=== PATIENT | male | born 1950 | race Caucasian/White ===

== ENCOUNTER 2016-08-18 07:10 | Day surgery (SDC) | payer OTHER ==
[~2016-08-18] VITALS: Ht 182.9 cm; Wt 91.0 kg
[2016-08-18] VITALS (650 sets, daily range): BP systolic 112–141; BP diastolic 65–87; PULSE 58–73; TEMP 97.8–98.3; O2SAT 84–98
[~2016-08-18 07:10] MED LIST: ALEVE 220MG220 MG PO; AMARYL 2MG T2 MG/TAB PO; AMARYL4 MG PO; ASPIRIN 81M81 MG/TA2 PO; ASPIRIN E.C. 8181 MG PO; BRILINTA90 MG PO; CARAFATE 1GM1 G PO; CENTRUM1 TAB PO; CIPRO 500MG TA500 MG PO; FLOMAX 0.40.4 MG/CAP PO; GLUCOPHAGE1000 MG PO; LIPITOR 10MG10 MG PO; LIPITOR20 MG PO; NITROSTAT0.4 MG/TAB SL; PLAVIX 75MG TAB75 MG PO; PRILOSEC 20MG20 MG PO; PRINIVIL10 MG PO; RT ADVAIR HFA 1112 G IH; SINGULAIR 110 MG/TAB PO; SPIRIVA RE2.5 MCG/Ac IH; TOPROL XL 25MG25 MG PO; TYLENOL 500MG500 MG PO; TYLENOL PM EXTR1 TA1 PO; VITAMIN C500 MG PO
[2016-08-18 08:00] LABS: HEMATOCRIT 43.4 % (42.0-52.0); HEMOGLOBIN 14.9 g/dl (13.5-18.0); MEAN CELL VOLUME 95 fl (80.0-100.0); MEAN CORPUSCULAR HEMOGLOBIN 33 pg (27.0-31.0); MEAN CORPUSCULAR HGB CONC 34 g/dl (33.0-37.0); MEAN PLATELET VOLUME 10.9 fl (7.4-10.4); PLATELET COUNT 177 K/mm3 (130-400); RED BLOOD COUNT 4.56 M/mm3 (4.20-5.60); REDCELL DISTRIBUTION WIDTH-CV 12.1 % (11.5-14.5)
[2016-08-18 08:12] LABS: CALCIUM 9.3 mg/dL (8.4-10.2); CREATININE, serum 0.94 mg/dL (0.66-1.25); POTASSIUM 4.2 mmol/L (3.4-5.0)
[2016-08-18 08:13] LABS: INR 1.1 (0.8-3.0); PROTHROMBIN TIME 12.1 SECONDS (9.7-12.8)
[2016-08-18] MEDS ORDERED: RT ADVAIR HFA 1112 G IH (11:56)
[2016-08-18] MEDS ORDERED: COMBIRESP IH (12:33)
[2016-08-19] VITALS (447 sets, daily range): BP systolic 119–151; BP diastolic 77–93; PULSE 79–92; TEMP 98; O2SAT 87–96
[2016-08-19 05:31] LABS: HEMATOCRIT 41.8 % (42.0-52.0); HEMOGLOBIN 14.6 g/dl (13.5-18.0); MEAN CELL VOLUME 93 fl (80.0-100.0); MEAN CORPUSCULAR HEMOGLOBIN 32 pg (27.0-31.0); MEAN CORPUSCULAR HGB CONC 35 g/dl (33.0-37.0); MEAN PLATELET VOLUME 10.7 fl (7.4-10.4); PLATELET COUNT 145 K/mm3 (130-400); RED BLOOD COUNT 4.51 M/mm3 (4.20-5.60); WHITE BLOOD COUNT 7.5 K/mm3 (4.8-10.8)
[2016-08-19 05:48] LABS: CALCIUM 8.8 mg/dL (8.4-10.2); CREATININE, serum 0.89 mg/dL (0.66-1.25); POTASSIUM 4.2 mmol/L (3.4-5.0)
[2016-08-19] MEDS ORDERED: ASPIRIN E.C. 8181 MG PO (09:34)
[2016-08-19] MEDS ORDERED: ASPIRIN E.C. 8181 MG (09:34)
[2016-08-19] MEDS ORDERED: CEPHALEXIN500 M1 PO (09:35)
[2016-08-19] MEDS ORDERED: PRILOTC (09:45)
== END 2016-08-19 10:30 | disposition home or self-care (01) ==
LOC: COL.CAR 07:10 → ICU 11:08 → IMCU 17:44 → COL.CAR 08-19 10:30
PROVIDERS: Internal Medicine Cardiovascular Disease
DX: I25.10 Atherosclerotic heart disease of native coronary artery without angina pectoris (principal); I10 Essential (primary) hypertension; I71.4 Abdominal aortic aneurysm, without rupture; E78.5 Hyperlipidemia, unspecified; E11.9 Type 2 diabetes mellitus without complications; J44.9 Chronic obstructive pulmonary disease, unspecified; M19.90 Unspecified osteoarthritis, unspecified site; Z79.84 Long term (current) use of oral hypoglycemic drugs; Z87.891 Personal history of nicotine dependence; Z86.79 Personal history of other diseases of the circulatory system; Z82.49 Family history of ischemic heart disease and other diseases of the circulatory system; Z80.8 Family history of malignant neoplasm of other organs or systems
CPT/HCPCS: OP; C1725; C1760; C1769; C1874; C1887; C9600; J0153; J1644; J2250; J3010; Q9967

== ENCOUNTER 2017-03-04 19:51 | Observation (INO) | payer OTHER ==
[~2017-03-04] VITALS: Ht 182.9 cm; Wt 101.8 kg
[~2017-03-04 19:51] MED LIST changes: +ASPIRIN E.C. 8181 MG; +CEPHALEXIN500 M1 PO; +COMBIRESP IH; +PRILOTC
[2017-03-04 21:16] VITALS: BP 148/87; PULSE 83; TEMP 97.9
[2017-03-05] VITALS (12 sets, daily range): BP systolic 96–139; BP diastolic 48–79; PULSE 72–91; TEMP 97.7–98.5
[2017-03-05] MEDS ORDERED: CIPRO 500MG TA500 MG PO ×2 (03:41→03:42)
[2017-03-05] MEDS ORDERED: PYRIDIUM 100MG100 MG PO (03:43)
[2017-03-05] MEDS ORDERED: NEURONTIN300 MG/CAP PO (04:15)
[2017-03-05 06:42] LABS: BASO % 0.2 % (0.0-2.0); EOS # 0.1 (0.0-0.7); EOS % 0.9 % (0-4.0); GRAN # 5.9 (1.4-6.5); GRAN % 56.4 % (42.2-75.2); LYMPH % 28.5 % (20.0-51.0); MEAN CELL VOLUME 96 fl (80.0-100.0); MEAN CORPUSCULAR HEMOGLOBIN 33 pg (27.0-31.0); MEAN CORPUSCULAR HGB CONC 34 g/dl (33.0-37.0); MEAN PLATELET VOLUME 11.1 fl (7.4-10.4); MONO # 1.4 (0.1-0.6); MONO % 13.6 % (1.7-9.3); PLATELET COUNT 146 K/mm3 (130-400); RED BLOOD COUNT 3.67 M/mm3 (4.20-5.60); WHITE BLOOD COUNT 10.4 K/mm3 (4.8-10.8)
[2017-03-05 06:45] LABS: HEMATOCRIT 35.3 % (42.0-52.0)
[2017-03-05 06:55] LABS: CALCIUM 8.5 mg/dL (8.4-10.2); CREATININE, serum 1.04 mg/dL (0.66-1.25)
[2017-03-06 00:49] VITALS: BP 161/95; PULSE 86; TEMP 98.3
[2017-03-06 04:00] VITALS: BP 133/66; PULSE 71; TEMP 97.8
[2017-03-06 09:22] VITALS: BP 142/75; PULSE 82; TEMP 97.9
== END 2017-03-06 14:30 | disposition home or self-care (01) ==
LOC: SURG 19:51
PROVIDERS: Urology
DX: R31.0 Gross hematuria (principal); R33.9 Retention of urine, unspecified; Z95.5 Presence of coronary angioplasty implant and graft; I25.10 Atherosclerotic heart disease of native coronary artery without angina pectoris; I10 Essential (primary) hypertension; Z95.0 Presence of cardiac pacemaker; J44.9 Chronic obstructive pulmonary disease, unspecified; Z87.891 Personal history of nicotine dependence; E11.9 Type 2 diabetes mellitus without complications; Z88.5 Allergy status to narcotic agent; Z88.1 Allergy status to other antibiotic agents; M19.90 Unspecified osteoarthritis, unspecified site; G43.909 Migraine, unspecified, not intractable, without status migrainosus; E78.5 Hyperlipidemia, unspecified
CPT/HCPCS: G0378; J1100; J1815; J2405; J2704; J3010; J7030

== ENCOUNTER 2018-07-16 14:04 | Inpatient (IN) | payer MEDICARE ==
[~2018-07-16] VITALS: Ht 182.9 cm; Wt 93.1 kg
[~2018-07-16 14:04] MED LIST changes: +BEVESPI AEROS10.7 GM IH; +NEURONTIN300 MG/CAP PO; +PYRIDIUM 100MG100 MG PO
[2018-07-16 14:22] LABS: BASO % 0.4 % (0.0-2.0); EOS # 0.2 (0.0-0.7); EOS % 2.9 % (0-4.0); GRAN # 3.7 (1.4-6.5); GRAN % 50.1 % (42.2-75.2); HEMATOCRIT 44.9 % (42.0-52.0); HEMOGLOBIN 15.3 g/dl (13.5-18.0); LYMPH # 2.4 (1.2-3.4); LYMPH % 32.2 % (20.0-51.0); MEAN CELL VOLUME 92 fl (80.0-100.0); MEAN CORPUSCULAR HEMOGLOBIN 31 pg (27.0-31.0); MEAN CORPUSCULAR HGB CONC 34 g/dl (33.0-37.0); MEAN PLATELET VOLUME 11.4 fl (7.4-10.4); MONO % 13.9 % (1.7-9.3); PLATELET COUNT 154 K/mm3 (130-400); RED BLOOD COUNT 4.88 M/mm3 (4.20-5.60); REDCELL DISTRIBUTION WIDTH-CV 12.4 % (11.5-14.5)
[2018-07-16 14:36] LABS: ALANINE AMINOTRANSFERASE 45 U/L (21-72); ALBUMIN 4.4 gm/dL (3.5-5.0); ALKALINE PHOSPHATASE 125 U/L (50-136); ANION GAP 9 mmol/L (7-16); AST,SGOT 39 U/L (15-37); BILIRUBIN,TOTAL 0.4 mg/dL (0.0-1.0); BLOOD UREA NITROGEN 16 mg/dL (9-20); CALCIUM 9.1 mg/dL (8.4-10.2); CARBON DIOXIDE 24 mmol/L (22-30); CHLORIDE 106 mmol/L (98-107); CREATININE, serum 0.99 (0.66-1.25); GLUCOSE 153 mg/dL (74-106); POTASSIUM 4.3 mmol/L (3.4-5.0); SODIUM 138 mmol/L (137-145); TOTAL PROTEIN 7.8 gm/dL (6.4-8.2)
[2018-07-16 14:37] LABS: C-REACTIVE PROTEIN < 0.5 mg/dL (0.0-0.9)
[2018-07-16 14:41] LABS: ERYTHROCYTE SEDIMENTATION RATE 2 mm/hr (0-30)
[2018-07-16 14:48] VITALS: BP 128/74; PULSE 70
[2018-07-16 17:02] LABS: COLLECTION METHOD CLEAN CATCH
[2018-07-16 17:33] LABS: MUCOUS Present /lpf; PH 5 (5-8); SQUAMOUS EPITHELIAL None Seen /hpf; URINE APPEARANCE Clear; URINE BACTERIA None Seen /hpf; URINE BILIRUBIN Negative (NEGATIVE); URINE BLOOD Negative (NEGATIVE); URINE COLOR Yellow; URINE GLUCOSE 1+ (NEGATIVE); URINE KETONE Negative (NEGATIVE); URINE LEUKOCYTE ESTERASE Negative (NEGATIVE); URINE NITRATE Negative (NEGATIVE); URINE PROTEIN(semi-quant) Negative (NEGATIVE); URINE RBC 0-2 /hpf; URINE UROBILINOGEN Negative (NEGATIVE)
[2018-07-16 19:25] VITALS: BP 146/89; PULSE 64; TEMP 97.5
--- NOTE | 2018-07-16 19:30 | NUR ---
PT ADMITTED TO ROOM. PT HAD PROVIDED THIS NURSE A COPY OF HIS MED LIST, THIS NURSE UPDATED MED REQ AND NOTIFIED CHRISTIN ANNEL OF CHANGES SO PT WAS ABLE TO GET ALL HIS MEDS THIS NOC.
[2018-07-16] MEDS ORDERED: TYLENOL PM EXTR1 TA1 PO (20:26)
[2018-07-16] MEDS ORDERED: PROTONIX20 MG PO (20:28)
--- NOTE | 2018-07-16 21:15 | NUR ---
PT RECIEVED SCHEULED LOVENOX SHOT. PT STATED THAT THE MEDICINE IN THE SHOT MADE IT HURT SO BAD THAT IT WAS THE WORST FEELING SHOT HES EVER HAD. STATED THAT HE DOESNT WANT ANY MORE LIKE THAT.
--- NOTE | 2018-07-16 23:00 | NUR ---
PT STATED THAT HE WAS THINKING THAT HE GETS HIS HEADACHES WHEN HIS BLOOD PRESSURE GETS HIGH AND WHEN HES HELPING WITH HIS GRANDCHILDREN. HE STATED THAT HIS SAID SHE NOTICES HIM HOLDING HIS HEAD AT THAT TIME WELL.
[2018-07-16 23:39] VITALS: BP 120/66; PULSE 69; TEMP 98
--- NOTE | 2018-07-17 00:30 | NUR ---
PT WAS MADE NPO AT MIDNIGHT. THIS NURSE SAW IN H&P NOTE ABOUT POSSIBLY DOING A DAMARIS SCAN LATER IN THE MORNING. DISSCUSSED THIS WITH PT, HE ALSO STATED THAT HE WAS TOLD BY LEWIS HE WAS GOING TO DO A HEART CATH DUE TO EXTENSIVE HEART HX.
[2018-07-17 03:24] VITALS: BP 153/97; PULSE 66; TEMP 97.1
--- NOTE | 2018-07-17 05:07 | NUR ---
PT AHD UNEVENTFUL NOC. NOC C/O PAIN. APPEARED TO HAVE SLEPT WELL.
--- NOTE | 2018-07-17 07:37 | NUR ---
Received report and met patient. He is awake, alert and plesant. States he really misses his morning coffee. He does have concern about his blood surgars as if he gets down to 80 he becomes symptomactic. He is scheduled to have another glucose test at 0800, prior was 232. He also states that he does not like the lovenox he received at HS as it was painful but will take if he has to. It was encouraged that he visit with the providers on rounds to see if there was an alternative for him. He currently denies pain. Call light and personal items are within reach.
[2018-07-17 07:47] VITALS: BP 149/88; PULSE 94; TEMP 98
--- NOTE | 2018-07-17 09:58 | NUR ---
Initial visit; Patient thanked Drum Worker for looking in on him and offering God's blessings. Drum Worker will follow up.
[2018-07-17 11:53] VITALS: BP 136/74; PULSE 85; TEMP 97.6
--- NOTE | 2018-07-17 13:54 | NUR ---
RAFY met with the patient and patient's , Camille, to discuss discharge plan. The patient lives in [place] with his and daughter, Nae. He reports independence with ADLs and does not use any DME. The patient's primary care provider is Khai Cordova PA-C and he receives his medications at [facility]. He reports no difficulties obtaining his meds. The patient does not have advanced directives, but he was interested in completing a DPOA-HC. The patient designated his and daughter (Nae). RAFY and the patient's GROUNDWATER CONSULTANT witnessed the patient's signature. The patient was provided with the original and some copies. A copy was placed in the patient's chart. The patient plans to return home with his family upon discharge. No additional needs at this time.
[2018-07-17 15:51] VITALS: BP 124/77; PULSE 88; TEMP 98.1
--- NOTE | 2018-07-17 17:08 | NUR ---
DR CAMACHO JUST NOTIFIED ME THAT EEG WAS NORMAL. DR SAUCEDO AND DEEDEE VALDEZ NOTIFIED ABOUT EEG RESULTS.
--- NOTE | 2018-07-17 18:25 | NUR ---
Patient sitting up in bed eating supper and watching TV. Family is at bedside. Personal items and call light is within reach. No other needs identified.
[2018-07-17 19:35] VITALS: BP 108/57; PULSE 90; TEMP 98
--- NOTE | 2018-07-17 20:30 | NUR ---
PT WBG 353 AT THIS TIME. PT CURRENLY EATING HS SNACK WILL RECHECK AT A LATER HOUR. PT WILL BE NPO AT MIDNIGHT. HOLDING INSULIN UNTIL RECHECK IF WBG ELEVATED AT LATER HOUR WITH ADMINISTER INSULIN
[2018-07-17 23:13] VITALS: BP 116/59; PULSE 77; TEMP 97.7
[2018-07-18] VITALS (433 sets, daily range): BP systolic 102–136; BP diastolic 58–83; PULSE 66–89; TEMP 97–97.9; O2SAT 84–100
--- NOTE | 2018-07-18 05:31 | NUR ---
PT HAD UNEVENTFUL NOC. NO C/O PAIN. APPEARED TO HAVE SLEPT WELL. WAS NPO AT MIDNIGHT FOR UPCOMING HEART CATH. NO ISSUES OR CONSERNS VOICED.
[2018-07-18 07:17] LABS: BASO % 0.1 % (0.0-2.0); EOS # 0.1 (0.0-0.7); EOS % 0.7 % (0-4.0); GRAN # 6.4 (1.4-6.5); GRAN % 65.9 % (42.2-75.2); HEMATOCRIT 42.9 % (42.0-52.0); HEMOGLOBIN 14.8 g/dl (13.5-18.0); LYMPH % 20.1 % (20.0-51.0); MEAN CELL VOLUME 93 fl (80.0-100.0); MEAN CORPUSCULAR HEMOGLOBIN 32 pg (27.0-31.0); MEAN CORPUSCULAR HGB CONC 35 g/dl (33.0-37.0); MEAN PLATELET VOLUME 11.6 fl (7.4-10.4); MONO # 1.2 (0.1-0.6); MONO % 12.7 % (1.7-9.3); PLATELET COUNT 143 K/mm3 (130-400); RED BLOOD COUNT 4.64 M/mm3 (4.20-5.60); REDCELL DISTRIBUTION WIDTH-CV 12.4 % (11.5-14.5)
[2018-07-18 07:22] LABS: INR 1.1 (0.8-3.0)
[2018-07-18 07:25] LABS: PARTIAL THROMBOPLASTIN TIME 30.3 SECONDS (26.0-37.0)
[2018-07-18 07:26] LABS: CALCIUM 9.2 mg/dL (8.4-10.2); CREATININE, serum 0.99 (0.66-1.25)
--- NOTE | 2018-07-18 10:15 | NUR ---
Patient sitting in chair upon entry. Patient awaiting cardiac cath procedure. Patient denies chest pain, SOB, dizziness, headache. Per patient "i thought one was coming on earlier but it went away". No complaints of N/V. Lung sounds clear throughout, heart sounds RRR, bowel sounds present X4, pulses strong bilaterally. Patient states right foot neuropathy due to DM. No other complaints other than "being hungry, thirsty and wanting coffee".
--- NOTE | 2018-07-18 10:50 | NUR ---
Dr. Nava in to see patient. Patient c/o of dizziness. Dr. Nava requesting blood sugar and blood pressure check. Patient has been NPO since last night. Patient denied dizziness or headache 30 min ago when in for assessment.
--- NOTE | 2018-07-18 11:15 | NUR ---
Patient down for Cardiac Cath procedure at this time.
--- NOTE | 2018-07-18 11:40 | NUR ---
SEE MERGE FOR MEDICATION ADMINISTRATION TIMES,SEE MERGE FOR RASS ASSESSMENT DURING AND POST PROCEDURE.
--- NOTE | 2018-07-18 13:13 | NUR ---
Report received from Jordy in record label intern and pt brought by bed to ICU 1. Pt placed on monitor and groin site assessed. Safeguard in place per record label intern staff. Pt denies any pain or concerns. Did go over bedrest and activity restrictions. Pt states he understands, "Shweta had 4 of these now." Call light within reach. Dr Zapata in to see pt. No new orders at this time. Will continue to follow.
--- NOTE | 2018-07-18 13:20 | NUR ---
Called Dr Castillo regarding temporal artery biopsy. Dr Castillo states biopsy will be in AM at 0730. Will page anesthesia to follow up with timing as well.
--- NOTE | 2018-07-18 16:55 | NUR ---
Pt resting at this time. Remains on bedrest. Dressing C/D/I. Denies any pain. Will continue to follow.
--- NOTE | 2018-07-18 18:57 | NUR ---
Safeguard removed and new dressing applied. Pt sat up in bed and tolerated well. No drainage noted. Pt voided per urinal. Continues to deny any pain. Is not dangling at edge of bed eating dinner. Will continue to follow.
--- NOTE | 2018-07-18 19:18 | NUR ---
Report given to Teressa VALDEZ and care transfered.
--- NOTE | 2018-07-18 19:30 | NUR ---
Groin site assessed; scant drainage. Area soft and non-tender to touch. Assessment complete. Patient denies any pain at this time. Call light within reach. Will continue to monitor.
[2018-07-19] VITALS (549 sets, daily range): BP systolic 95–130; BP diastolic 56–81; PULSE 73–91; TEMP 97.4–97.8; O2SAT 77–99
--- NOTE | 2018-07-19 04:00 | NUR ---
Groin site assessed; scant drainage noted. Has not changed since 1999 assessment. Bandage change; no other concerns at this time.
[2018-07-19 05:54] LABS: BASO % 0.1 % (0.0-2.0); GRAN # 6.2 (1.4-6.5); HEMATOCRIT 43.2 % (42.0-52.0); HEMOGLOBIN 14.6 g/dl (13.5-18.0); LYMPH # 1.3 (1.2-3.4); LYMPH % 15.4 % (20.0-51.0); MEAN CELL VOLUME 94 fl (80.0-100.0); MEAN CORPUSCULAR HEMOGLOBIN 32 pg (27.0-31.0); MEAN CORPUSCULAR HGB CONC 34 g/dl (33.0-37.0); MONO # 0.8 (0.1-0.6); MONO % 9.9 % (1.7-9.3); PLATELET COUNT 140 K/mm3 (130-400); RED BLOOD COUNT 4.62 M/mm3 (4.20-5.60); REDCELL DISTRIBUTION WIDTH-CV 12.3 % (11.5-14.5)
[2018-07-19 06:11] LABS: CALCIUM 9.1 mg/dL (8.4-10.2); CREATININE, serum 0.99 (0.66-1.25); POTASSIUM 4.4 mmol/L (3.4-5.0)
--- NOTE | 2018-07-19 06:58 | NUR ---
Kenny, first assistant manager here to transport patient off unit for artery biopsy.
--- NOTE | 2018-07-19 07:00 | NUR ---
Beside report given to JOSÉ MIGUEL Corcoran. Patient care transfered.
--- NOTE | 2018-07-19 07:10 | NUR ---
Report received from Teressa VALDEZ and care resumed. Pt currently in OR getting biopsy.
--- NOTE | 2018-07-19 08:50 | NUR ---
Pt returned from OR and placed back on monitor. Denies any pain or concerns. Assessment complete. Approximately 1 inch incision noted to right temporal area, glue intact. Will continue to follow.
--- NOTE | 2018-07-19 09:10 | NUR ---
Dr Hunter in to see pt at this time.
[2018-07-19] MEDS ORDERED: LIPITOR 80MG80 MG PO (09:19)
[2018-07-19] MEDS ORDERED: PREDNISONE20 MG PO (09:21)
--- NOTE | 2018-07-19 09:22 | NUR ---
SW attended clinical rounds. Patient will likley discharge home today.
--- NOTE | 2018-07-19 11:38 | NUR ---
Dr Lyons in to see pt. Plan will be to review/update meds then ok for discharge per Dr Hunter.
--- NOTE | 2018-07-19 14:21 | NUR ---
Dr Hunter called to follow up with pt. Will plan for discharge.
--- NOTE | 2018-07-19 14:44 | NUR ---
Pt given discharge instructions. INT dc'd at pt dressed. Pt walked out per request to front entrance for discharge.
== END 2018-07-19 14:40 | disposition home or self-care (01) | DRG 41 ==
LOC: COL.ER 14:04 → MEDICAL 16:30 → ICU 16:30 → MEDICAL 16:30 → ICU 07-18 12:39
PROVIDERS: Emergency Medicine; Physician Assistant; ADMIT Hospitalist
PROC: 027034Z Dilation of Coronary Artery, One Artery with Drug-eluting Intraluminal Device, Percutaneous Approach (ICD-10-PCS; principal; 2018-07-18)
PROC: B2111ZZ Fluoroscopy of Multiple Coronary Arteries using Low Osmolar Contrast (ICD-10-PCS; 2018-07-18)
PROC: 03BS0ZX Excision of Right Temporal Artery, Open Approach, Diagnostic (ICD-10-PCS; 2018-07-19)
DX: G44.53 Primary thunderclap headache (principal); T82.855A Stenosis of coronary artery stent, initial encounter; I25.10 Atherosclerotic heart disease of native coronary artery without angina pectoris; I10 Essential (primary) hypertension; E11.43 Type 2 diabetes mellitus with diabetic autonomic (poly)neuropathy; E78.5 Hyperlipidemia, unspecified; Z95.5 Presence of coronary angioplasty implant and graft; J44.9 Chronic obstructive pulmonary disease, unspecified; N40.0 Benign prostatic hyperplasia without lower urinary tract symptoms; Z87.891 Personal history of nicotine dependence; M27.40 Unspecified cyst of jaw
CPT/HCPCS: OP; 99222-AI; 99239; C1725; C1760; C1769; C1874; C1887; C1894; C9600; J0583; J1644; J1650; J1815; J2250; J2704; J3010; J7512; Q9967

== ENCOUNTER 2018-12-11 22:58 | Inpatient (IN) | payer MEDICARE ==
[~2018-12-11] VITALS: Ht 182.9 cm; Wt 91.5 kg
[~2018-12-11 22:58] MED LIST changes: +LIPITOR 80MG80 MG PO; +PREDNISONE20 MG PO; +PROTONIX20 MG PO
--- NOTE | 2018-12-11 23:02 | NUR ---
Patient arrived accompanied by [facility]. Patient has chest pain of 1/10 at this time, ANNEL Peter notified of arrival, will continue to monitor.
[2018-12-11 23:09] VITALS: BP 142/85; PULSE 61; TEMP 97.7
[2018-12-11 23:40] LABS: MAGNESIUM 1.6 mg/dL (1.6-2.3)
[2018-12-11 23:53] LABS: TROPONIN-I < 0.012 ng/mL (0.000-0.035)
[2018-12-12] VITALS (812 sets, daily range): BP systolic 108–149; BP diastolic 65–86; PULSE 53–83; TEMP 97.8–98.4; O2SAT 79–97
[2018-12-12] MEDS ORDERED: SINGULAIR 110 MG/TAB PO (00:11)
[2018-12-12] MEDS ORDERED: TRELEGY ELLIPT1 EACH IH (00:12)
[2018-12-12] MEDS ORDERED: [UNRECOGNIZED DRUG - OTHER] INH (00:13)
[2018-12-12 06:01] LABS: BASO % 0.5 % (0.0-2.0); EOS # 0.3 (0.0-0.7); EOS % 4.4 % (0-4.0); GRAN # 3.1 (1.4-6.5); GRAN % 52.2 % (42.2-75.2); HEMOGLOBIN 13.2 g/dl (13.5-18.0); LYMPH # 1.7 (1.2-3.4); MEAN CELL VOLUME 95 fl (80.0-100.0); MEAN CORPUSCULAR HEMOGLOBIN 32 pg (27.0-31.0); MEAN CORPUSCULAR HGB CONC 34 g/dl (33.0-37.0); MEAN PLATELET VOLUME 11.6 fl (7.4-10.4); MONO # 0.9 (0.1-0.6); MONO % 14.6 % (1.7-9.3); PLATELET COUNT 121 K/mm3 (130-400); RED BLOOD COUNT 4.11 M/mm3 (4.20-5.60); REDCELL DISTRIBUTION WIDTH-CV 12.4 % (11.5-14.5)
[2018-12-12 06:17] LABS: ALANINE AMINOTRANSFERASE 29 U/L (21-72); ALBUMIN 3.4 gm/dL (3.5-5.0); ALKALINE PHOSPHATASE 85 U/L (50-136); ANION GAP 7 mmol/L (7-16); AST,SGOT 28 U/L (15-37); BILIRUBIN,TOTAL 0.3 mg/dL (0.0-1.0); BLOOD UREA NITROGEN 9 mg/dL (9-20); CALCIUM 8.1 mg/dL (8.4-10.2); CARBON DIOXIDE 26 mmol/L (22-30); CHLORIDE 107 mmol/L (98-107); CHOLESTEROL 112 mg/dL (120-200); CREATININE, serum 0.89 (0.66-1.25); GLUCOSE 124 mg/dL (74-106); HDL CHOLESTEROL 28 mg/dL; LDL CHOLESTEROL 49 mg/dL; MAGNESIUM 2.1 mg/dL (1.6-2.3); POTASSIUM 3.7 mmol/L (3.4-5.0); SODIUM 140 mmol/L (137-145); TRIGLYCERIDE 174 mg/dL
[2018-12-12 06:37] LABS: TROPONIN-I < 0.012 ng/mL (0.000-0.035)
--- NOTE | 2018-12-12 07:00 | NUR ---
RECEIVED REPORT FROM JOSÉ MIGUEL JACINTO. PT SITTING UP IN BED WATCHING TV. NITRO GTT INFUSING AT 10MCG/MIN. CALL LIGHT WITHIN REACH. VSS.
--- NOTE | 2018-12-12 07:45 | NUR ---
US TECH AT BEDSIDE FOR ECHO. PT COOPERATIVE WITH CARE.
--- NOTE | 2018-12-12 08:35 | NUR ---
O2 DECREASED TO 3L VIA NC. PT DENIES ANY NEEDS AT THIS TIME. CALL LIGHT WITHIN REACH. PT VERBALIZED UNDERSTANDING THAT HE IS NPO AT THIS TIME.
--- NOTE | 2018-12-12 09:37 | NUR ---
DR EPPS AT BEDSIDE FOR ASSESSMENT. AWAITING FOR CARDIOLOGY TO INTERROGATE LOOP RECORDER AND ASSESSMENT.
--- NOTE | 2018-12-12 10:16 | NUR ---
SUZETTE mosher attended clinical rounds with the team. Stone Breaker was consulted. After rounds SUZETTE mosher met with the patient to discuss a discharge plan. The patient lives in [place] with his , Camille and their daughter and three grandchildren. The patient has a cane in case he needs it and is independent with ADLs. The patient's PCP is PETE Chanel and patient receives medications from [facility] with no difficulties. The patient has advanced directives in the EMR. The patient plans to return home upon discharge with Camille providing transportation. There are no additional needs at this time.
--- NOTE | 2018-12-12 11:01 | NUR ---
[facility] RNs AT BEDSIDE PREPPING PT. CONSENT SIGNED. NITRO GTT INFUSING AT 10MCG/MIN INFUSING UPON TRANSFER TO [facility].
--- NOTE | 2018-12-12 11:27 | NUR ---
SEE MERGE DOCUMENTATION FOR MEDICATION ADMINISTRATION TIMES AND INTRA/POST PROCEDURE SEDATION ASSESSMENTS. MD NOTIFIED OF LOVENOX ADMIN THIS MORNING AND CURRENT PLATELET LEVEL PRIOR TO PROCEDURE START.
--- NOTE | 2018-12-12 12:05 | NUR ---
PT ARRIVED TO ROOM VIA STRETCH IN SUPINE POSITION. RECEIVED REPORT FROM JOSÉ MIGUEL BENDER AT BEDSIDE FROM FREELANCE RECRUITER. PT PLACED ON CONTINUOUS BEDSIDE MONITORING. VSS. CALL LIGHT WITHIN REACH. PT DENIES ANY CP OR SHOB AT THIS TIME. PT ON 2L VIA NC. PT DID NOT COME BACK ON NITRO GTT. PT ASSISTED TO ORDER FOOD TRAY AT THIS TIME. RT FEMORAL GROIN SITE C/D/I WITH GAUZE AND TEGADERM. EDUCATED PT AND ABOUT POC AND NEEDIGN TO LIE FLAT FOR 4 HRS AT THIS TIME. BOTH VERBALIZED UNDERSTANDING. PT PLACED IN REVERSE TRENDELENBERG TO BE ABLE TO DRINK AND EAT. PT TOLERATING WELL. DENIES ANY FURTHER NEEDS AT THIS TIME.
--- NOTE | 2018-12-12 12:15 | NUR ---
Pt transferred to ICU 4 from shipyard laborer at this time. Pt transported with monitor. On arrival to ICU, VS monitoring equipment attached. Pt alert and awake, conversing with staff. Bedside handoff to JOSÉ MIGUEL Garcia. Right femoral access site assessed. Dressing dry and intact. No bleeding, oozing, or bruising noted at this time. Site soft to palpation; no s/sx of hematoma noted. Pt denies pain to right groin, leg, or foot. Education provided regarding flat time and s/sx to report. All pt questions answered at this time.
--- NOTE | 2018-12-12 14:53 | NUR ---
SPOKE WITH NERI TAVERA ABOUT CARDIOLOGY RELEASING PT. STATES SHE WILL TOUCH BASE WITH DR EPPS AND GET BACK TO NURSE.
--- NOTE | 2018-12-12 17:15 | NUR ---
PT AMBULATED ON RA WITH NURSE AND RT, POX NOTED TO DECREASE TO 72% AND PT APPEARED TO BE HAVING A HARDER TIME TALKING IN FULL SENTENCES AT THIS TIME. PT PLACED ON 6L VIA NC WHILE AMBULATING AND POX NOTED TO ONLY INCREASE TO 84%. DAUGHTER AT BEDSIDE DURING ASSESSMENT. DAUGHTER STATES "I WILL NOT TAKE HIM HOME IF HE REFUSES THE HOME OXYGEN." PT RECONSIDERS HOME OXYGEN AND AGREES TO IT.
--- NOTE | 2018-12-12 17:25 | NUR ---
PT BACK TO BED AND PLACED ON 2L VIA NC FOR SITTING IN BED, POX 90-94%. DR EPPS NOTIFIED OF PT'S CHANGE IN WANTING HOME OXYGEN. CASE MANAGEMENT NOT IN HOUSE AT THIS TIME AND WILL CANCEL DC ORDER AT THIS TIME AND CHANGE PT TO MEDICAL STATUS. PLAN STILL TO DC TOMORROW ONCE HOME OXYGEN IS ABLE TO BE SET UP. DAUGHTER AND PT NOTIFIED OF POC. PT COOPERATIVE WITH CARE AND BOTH VERBALIZED UNDERSTANDING OF POC. PT ORDERING DINNER AT THIS TIME. VSS. CALL LIGHT WITHIN REACH.
[2018-12-13] VITALS (701 sets, daily range): BP systolic 130–145; BP diastolic 62–85; PULSE 59–74; TEMP 97.9–98.8; O2SAT 79–98
--- NOTE | 2018-12-13 01:21 | NUR ---
Pt ambulated to the bathroom on 2L Nc, but desated to 80%. Pt's oxygen increased to 6L NC. Pt back to bed and recovered. Pt turned back down to 2L NC. Will continue to [facility].
[2018-12-13 06:38] LABS: BASO % 0.3 % (0.0-2.0); EOS # 0.3 (0.0-0.7); GRAN # 4.1 (1.4-6.5); GRAN % 58.6 % (42.2-75.2); HEMATOCRIT 40.2 % (42.0-52.0); HEMOGLOBIN 13.7 g/dl (13.5-18.0); LYMPH # 1.6 (1.2-3.4); LYMPH % 23.1 % (20.0-51.0); MEAN CELL VOLUME 94 fl (80.0-100.0); MEAN CORPUSCULAR HEMOGLOBIN 32 pg (27.0-31.0); MEAN CORPUSCULAR HGB CONC 34 g/dl (33.0-37.0); MEAN PLATELET VOLUME 11.3 fl (7.4-10.4); MONO % 13.7 % (1.7-9.3); PLATELET COUNT 123 K/mm3 (130-400); RED BLOOD COUNT 4.26 M/mm3 (4.20-5.60)
[2018-12-13 06:58] LABS: CALCIUM 8.4 mg/dL (8.4-10.2); CREATININE, serum 0.9 (0.66-1.25); POTASSIUM 4.1 mmol/L (3.4-5.0)
--- NOTE | 2018-12-13 10:18 | NUR ---
The patient is to discharge home today, 12/13. NUTRITION AIDES TEACHER student met with the patient to discuss the recommendation of home oxygen. NUTRITION AIDES TEACHER student presented the DME patient choice form and patient chose [facility]. A referral was faxed and received. There are no additional needs at this time.
== END 2018-12-13 12:19 | disposition home or self-care (01) | DRG 286 ==
LOC: ICU 22:58
PROVIDERS: Nurse Practitioner Family; Physician Assistant; ADMIT Student in an Organized Health Care Education/Training Program
PROC: 4A023N7 Measurement of Cardiac Sampling and Pressure, Left Heart, Percutaneous Approach (ICD-10-PCS; principal; 2018-12-11)
PROC: B2111ZZ Fluoroscopy of Multiple Coronary Arteries using Low Osmolar Contrast (ICD-10-PCS; 2018-12-11)
PROC: B2151ZZ Fluoroscopy of Left Heart using Low Osmolar Contrast (ICD-10-PCS; 2018-12-11)
DX: R07.89 Other chest pain (principal); J96.01 Acute respiratory failure with hypoxia; I25.10 Atherosclerotic heart disease of native coronary artery without angina pectoris; Z95.5 Presence of coronary angioplasty implant and graft; R55 Syncope and collapse; E83.42 Hypomagnesemia; I10 Essential (primary) hypertension; E78.5 Hyperlipidemia, unspecified; E11.9 Type 2 diabetes mellitus without complications; J84.10 Pulmonary fibrosis, unspecified
CPT/HCPCS: 99222-AI; 99239; A9284; C1760; C1894; C9113; J1644; J1650; J2250; J3010; J3475; J7030; Q9967